=== PATIENT | female | born 1955 | race African-American/Black ===

== ENCOUNTER 2019-01-26 01:05 | Emergency (ER) | payer OTHER, BC ==
[~2019-01-26] VITALS: Ht 157.5 cm; Wt 65.8 kg
[2019-01-26] MEDS ORDERED: PEPCID20 MG PO (03:11)
[2019-01-26] MEDS ORDERED: PREDNISONE 20 M20 MG PO (03:11)
[2019-01-26 03:29] VITALS: BP 113/66
== END 2019-01-26 03:29 | disposition home or self-care (01) ==
LOC: ER 01:05
DX: T78.1XXA Other adverse food reactions, not elsewhere classified, initial encounter (principal); X58.XXXA Exposure to other specified factors, initial encounter; L50.9 Urticaria, unspecified; I10 Essential (primary) hypertension; E78.00 Pure hypercholesterolemia, unspecified

== ENCOUNTER 2021-01-05 09:19 | Emergency (ER) | payer OTHER, BC ==
[~2021-01-05] VITALS: Ht 157.5 cm; Wt 68.0 kg
[~2021-01-05 09:19] MED LIST: PEPCID20 MG PO; PREDNISONE 20 M20 MG PO
[2021-01-05 09:42] LABS: ABSOLUTE NEUTROPHILS 2.3 thou/uL (1.4-8.2); BASOPHILS 1.2 % (0.0-2.0); EOSINOPHILS 0.7 % (0.0-3.0); HEMOGLOBIN 12.9 gm/dL (12.0-15.0); MCH 30.1 pg (26.0-34.0); MONOCYTES 8.5 % (1.0-8.0); PLATELET COUNT 323 thou/uL (150-400); POLYS 38.6 % (36.0-66.0); RBC 4.28 mil/uL (4.20-5.00); RDW 14.6 % (10.5-14.5)
[2021-01-05 09:51] LABS: ANION GAP 11 mmol/L (7-16); BUN 11 mg/dL (7-18); CALCIUM 9.8 mg/dL (8.5-10.1); CHLORIDE 101 mmol/L (98-107); CO2 27 mmol/L (21-32); CREATININE 0.9 mg/dL (0.6-1.0); GLUCOSE 121 mg/dL (74-106); POTASSIUM 3.6 mmol/L (3.5-5.1); SODIUM 139 mmol/L (136-145)
[2021-01-05] MEDS ORDERED: LIPITOR80 MG PO (09:53)
[2021-01-05] MEDS ORDERED: ASA81BEC PO (09:54)
[2021-01-05 10:02] LABS: ALBUMIN 4.1 g/dL (3.4-5.0); LIPASE 217 U/L (73-393); SGOT 35 U/L (15-37); SGPT 44 U/L (14-59); TOTAL BILIRUBIN 0.4 mg/dL (0.2-1.0); TOTAL PROTEIN 8.9 g/dL (6.4-8.2); TROPONIN-I <0.06 ng/mL (<0.06)
[2021-01-05] MEDS ORDERED: VITAMIN D3250 MCG PO (11:54)
[2021-01-05] MEDS ORDERED: [UNRECOGNIZED DRUG - OTHER] PO (11:55)
[2021-01-05] MEDS ORDERED: CITRACAL + D31 EACH PO (11:56)
[2021-01-05] MEDS ORDERED: FLONASE 0.05%50 MCG NASAL (11:58)
[2021-01-05] MEDS ORDERED: TOPROL XL25 MG PO (12:01)
[2021-01-05 13:21] VITALS: BP 139/73
--- NOTE | 2021-01-05 15:25 | EKG ---
[address] [address] ELECTROCARDIOGRAM REPORT Name: GAMALIEL GONZALEZ JASWINDER Room #: DEP [facility]#: [id number] Admission: 01/05/21 Attend Phys: Discharge: 01/05/21 Date of : 51 Report #: [id number] [facility] ED Test Date: 2021-01-05 Test Time: 09:30:53 Pat Name: GAMALIEL GONZALEZ Department: Room: Gender: F Event Planning Intern: TIFFANY : 1955 Requested By: Tito Garg Order Number: [id number] MD: Brandyn Lozano Measurements Intervals [place] Rate: 117 P: 66 CT: 153 QRS: 56 QRSD: 78 T: 17 QT: 317 QTc: 443 Interpretive Statements Sinus tachycardia Biatrial enlargement No previous ECG available for comparison Electronically Signed On 01-05-2021 15:25:04 CDT by Brandyn Lozano [email or web address] <ELECTRONICALLY SIGNED> By: Brandyn Lozano MD 01/05/21 1525 0930 9 Brandyn Lozano MD /ROSIE
== END 2021-01-05 13:27 | disposition home or self-care (01) ==
LOC: ER 09:19
PROVIDERS: Emergency Medicine
DX: R07.89 Other chest pain (principal); I10 Essential (primary) hypertension; E78.5 Hyperlipidemia, unspecified; Z79.82 Long term (current) use of aspirin; Z79.899 Other long term (current) drug therapy